=== PATIENT | male | born 1990 | race Caucasian/White ===

== ENCOUNTER 2023-05-07 04:57 | Emergency (ER) | payer OTHER, SELFPAY ==
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
[2023-05-07 05:05] VITALS: BP 134/86; PULSE 87; RESP 15; TEMP 36.7; O2SAT 96
[2023-05-07] MEDS: ACETAMINOPHEN 500 MG TABLET 1000 MG PO (05:09)
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
[2023-05-07 06:27] VITALS: BP 132/81; PULSE 84; RESP 16; O2SAT 97
== END 2023-05-07 06:28 | disposition home or self-care (01) ==
PROVIDERS: Emergency Provider Emergency Medicine
DX: S06.0X0A Concussion without loss of consciousness, initial encounter (principal); Y04.0XXA Assault by unarmed brawl or fight, initial encounter
CPT/HCPCS: 70450; 99284; A9270